=== PATIENT | female | born 1935 | race Caucasian/White ===

== ENCOUNTER 2018-05-24 08:30 | Emergency (ER) | payer OTHER ==
[~2018-05-24] VITALS: Ht 154.9 cm; Wt 87.5 kg
[~2018-05-24 08:30] MED LIST: APAP/HYDROCODON1 T13 PO; ASPIR 8181 MG PO; CARCD120 PO; CLINDAMYCIN HC300 MG PO; COL100 PO; ECO81 PO; HYD25 PO; IPRATROPIUM BROM3 M2 HHN; L40I IV; LAC PO; LEVAQUIN750 MG PO; LIPI20 PO; LOP50 PO; METOPROLOL SUCC50 M1 PO; MOR2I IV; MORGIDOX 1X100100 MG PO; MYCP TOP; NIT0.4 SL; NPHOS PO; PHEL PO; PRI20 PO; ROBDML PO; SIMVASTATIN20 M1 PO; TOP50 PO; TYL325 PO; ZES5 PO; ZOFI IV
[2018-05-24 08:37] VITALS: Ht 154.9 cm; Wt 87.5 kg
[2018-05-24 09:02] VITALS: BP 166/66
[2018-05-24 09:19] LABS: BASOPHIL % 0.4 % (0-2); RED CELL DISTRIBUTION WIDTH 13.6 % (11.5-14.5)
[2018-05-24 09:22] LABS: PLATELET COUNT 412 x10^3mcL (130-400)
[2018-05-24 09:35] LABS: CALCIUM 9.1 mg/dL (8.5-10.1); CARBON DIOXIDE 27.1 mmol/L (21-32); CHLORIDE SERUM 102 mmol/L (98-107); CREATININE SERUM 0.9 mg/dL (0.6-1.0); GLUCOSE SERUM 176 mg/dL (74-106); SODIUM SERUM 138 mmol/L (136-145)
[2018-05-24 09:44] LABS: T3 TOTAL 1.27 ng/mL
[2018-05-24 09:47] LABS: CK-MB 0.9 ng/mL (0-3.6)
[2018-05-24 09:48] LABS: FREE THYROXINE INDEX 2.3 ug/dL (1.4-4.5); T4(THYROXINE) 7.2 ug/dL (4.7-13.3)
[2018-05-24 09:51] LABS: ALBUMIN 3.2 g/dL (3.4-5.0); ALKALINE PHOSPHATASE 102 U/L (46-116); ALT/SGPT 16 U/L (14-59); AST/SGOT 11 U/L (15-37); BILIRUBIN TOTAL 0.6 mg/dL (0.20-1.00); C REACTIVE PROTEIN 8.9 mg/dL (<=0.9); TOTAL PROTEIN, SERUM 7.4 g/dL (6.4-8.2)
[2018-05-24 10:54] LABS: ERYTHROCYTE SED RATE 58 mm/hr (0-30)
[2018-05-24 15:03] LABS: microscopic required? NO
[2018-05-24 15:20] LABS: urine erythrocyte NEGATIVE (NEGATIVE)
== END 2018-05-24 10:56 | disposition home or self-care (01) ==
LOC: ED 08:30
PROVIDERS: Specialist
DX: J44.1 Chronic obstructive pulmonary disease with (acute) exacerbation (principal); J40 Bronchitis, not specified as acute or chronic; I11.0 Hypertensive heart disease with heart failure; I50.9 Heart failure, unspecified; Z88.0 Allergy status to penicillin
CPT/HCPCS: 83880; 84439; 87804; J2930; J7613; J7644; Q0092